=== PATIENT | female | born 1990 | race Caucasian/White ===

== ENCOUNTER → 2022-07-11 | Outpatient (REF) | payer OTHER, MEDICAID ==
[~2022-07-11] MED LIST: FLUV25TA13 PO; QUET50TA4 PO
== END ==
LOC: M SFHCDERM 17:46
PROVIDERS: ATTEND Physician Assistant
DX: D49.2 Neoplasm of unspecified behavior of bone, soft tissue, and skin (principal)

== ENCOUNTER 2022-07-30 06:45 | Day surgery (SDC) | payer BC, OTHER ==
[~2022-07-30] VITALS: Ht 172.7 cm; Wt 92.4 kg
[~2022-07-30 06:45] MED LIST changes: +NS 1,000 ML IV ONE
[2022-07-30] MEDS ORDERED: propofoL 200 MG/20 ML VIAL As Ordered ONE (07:04)
[2022-07-30] MEDS ORDERED: LIDOCAINE 2% 100MG/5ML SDV (FOR ANES.) As Ordered ONE (07:04)
[2022-07-30 09:05] VITALS: BP 119/66
== END 2022-07-30 09:20 | disposition home or self-care (01) ==
LOC: M OPP 06:45
PROVIDERS: ATTEND Internal Medicine Gastroenterology
DX: K92.1 Melena (principal); K64.4 Residual hemorrhoidal skin tags; K64.8 Other hemorrhoids; K59.00 Constipation, unspecified; Z79.899 Other long term (current) drug therapy; Z98.84 Bariatric surgery status; Z87.891 Personal history of nicotine dependence